=== PATIENT | male | born 1990 | race Caucasian/White ===

== ENCOUNTER 2019-10-26 13:22 | Emergency (ER) | payer MEDICAID ==
[~2019-10-26] VITALS: Ht 160 cm; Wt 73.9 kg
[2019-10-26 13:42] VITALS: BP 140/92; Ht 160 cm; Wt 73.9 kg
== END 2019-10-26 14:45 | disposition home or self-care (01) ==
LOC: ED 13:22
DX: H66.91 Otitis media, unspecified, right ear (principal)